=== PATIENT | male | born 1985 | race Caucasian/White ===

== ENCOUNTER 2020-10-21 22:20 | Emergency (ER) | payer BC, SELFPAY ==
[2020-10-21 22:27] VITALS: BP 156/76; PULSE 107; RESP 20; TEMP 36.9; O2SAT 97
[2020-10-21 22:48] LABS: Glucose Point of Care 464 mg/dl (65-105)
[2020-10-21 22:54] LABS: Basophils Absolute Auto 0.1 K/mm3 (0.0-0.1); Basophils Percent Auto 0.6 % (0.2-1.2); Eosinophils Absolute Auto 0.1 K/mm3 (0-0.3); Eosinophils Percent Auto 1.3 % (0-4.4); Hematocrit 39.8 % (42.0-52.0); Hemoglobin 12.9 g/dL (14.0-18.0); Immature Granulocyte Absolute 0.04 K/mm3 (0.00-0.031); Immature Granulocyte Percent A 0.5 % (0-0.5); Lymphocytes Absolute Auto 2.19 K/mm3 (0.9-3.2); Lymphocytes Percent Auto 26.3 % (18.3-44.2); Mean Corpuscular HGB Conc 32.4 g/dl (32-36); Mean Corpuscular Hemoglobin 27.7 pg (26-34); Mean Corpuscular Volume 85.6 fl (80-100); Mean Platelet Volume 12.1 fl (7.4-10.4); Monocytes Absolute Auto 0.5 K/mm3 (0.1-0.6); Monocytes Percent Auto 6.4 % (2.6-8.5); Neutrophils Absolute Auto 5.4 K/mm3 (1.3-6.7); Neutrophils Percent Auto 64.9 % (45.5-73.1); Platelet Count Result 162 k/mm3 (150-375); Red Blood Count 4.65 M/mm3 (4.6-6.20); Red Cell Distribution Width 14.7 % (11.5-14.5); White Blood Count 8.3 K/mm3 (4.5-10.0)
[2020-10-21 23:09] LABS: Albumin Level 4.5 g/dL (3.5-5.1); Alkaline Phosphatase 94 U/L (38-126); Anion Gap 16 mmol/L (8-16); Aspartate Amino Transferase 54 U/L (17-59); Bilirubin,Total 1.1 mg/dL (0.2-1.3); Blood Urea Nitrogen 13 mg/dL (9-20); Calcium 9.4 mg/dL (8.4-10.2); Carbon Dioxide 28 mmol/L (22-30); Chloride 90 mmol/L (98-107); Estimated CRCL calculation 176 ml/min; Estimated Glomerular Filt Rate > 60; Glucose 474 mg/dL (75-110); Magnesium 1.4 mg/dL (1.6-2.3); Phosphorus 3.6 mg/dL (2.5-4.5); Sodium 134 mmol/L (137-145)
[2020-10-21 23:27] LABS: Alanine Aminotransferase 49 U/L (4-50)
[2020-10-21 23:37] LABS: Add Urine Microscopic? YES; Appearance Urine Clear (Clear); Bilirubin Urine Negative (Negative); Blood Urine 1+ (Negative); Color Urine Straw (Yellow); Glucose Urine UA 3+ mg/dL (Negative); Ketones Urine Negative (Negative); Leukocyte Esterase Ur Negative LEU/UL (Negative); Mucus Urine Rare /lpf; Nitrate Urine Negative (Negative); Protein Urine 1+ mg/dL (Negative); Urobilinogen Urine Negative mg/dL (<2.0); WBC Urine 0-3 /hpf
[2020-10-22 01:29] LABS: Alveolar/Arterial O2 Gradient 34.4 mmHg; Fractional Inspired Oxygen 21 %; Oxygen Saturation ABG 92.8 % (95.0-100.0); Oxyhemoglobin 90.8 % THb (90.0-100.0); PCO2 ABG 41.2 mmHg (35.0-45.0); PO2 FiO2 Ratio Arterial Blood 3.14 %; Total Hemoglobin 13.3 g/dL (12.0-18.0); pH ABG 7.384 (7.350-7.450)
[2020-10-22 01:30] LABS: Modified Allen's Test Pass; Site Drawn RIGHT RADIAL
[2020-10-22 01:35] VITALS: BP 145/72; PULSE 98; RESP 14; O2SAT 95
--- NOTE | 2020-10-22 01:37 | ED.GENADULT ---
HPI - General Adult General Chief complaint: Recheck/Abnormal Lab/Rx <Gopi Rico MD - Last Filed: 10/22/20 02:07> Stated complaint: high blood sugar, lightheaded, chest pressure <Gopi Rico MD - Last Filed: 10/22/20 02:07> Time Seen by Provider: 10/22/20 00:48 <Gopi Rico MD - Last Filed: 10/22/20 02:07> Source: patient and family <Gopi Rico MD - Last Filed: 10/22/20 02:07> History of Present Illness HPI narrative: Patient is 35 years old white male presents with hyperglycemia. History of diagnosis of diabetes over 1 year ago, patient been on oral medication for a while, started on insulin 6 months ago. Patient is telling me that he check his blood glucose once a day, at a.m., 3 to 4 days a week and usually runs in the 300 400 range. Patient went to see his family physician today for regular checkup, hemoglobin A1c was 10.8. His insulin regimen changed. Patient started the new insulin regimen, then checked his blood glucose before dinner and the number was high. Currently patient complaining of lightheadedness and not feeling well. Patient denies any fever, chills, nausea, vomiting, chest pain, shortness of breath, back pain, headache. <Gopi Rico MD - Last Filed: 10/22/20 02:07> Related Data Home medications: Home Medications Medication Instructions Recorded Confirmed dapagliflozin 10 mg tablet 10 mg PO QAM tablet 05/01/19 amlodipine 10/22/20 atorvastatin 10/22/20 famotidine 10/22/20 insulin aspart U-100 [Novolog 5 unit SUBCUT TID 10/22/20 Flexpen U-100 Insulin] <Gopi Rico MD - Last Filed: 10/22/20 02:07> Allergies/adverse reactions: Allergies Allergy/AdvReac Type Severity Reaction Status Date / Time No Known Allergies Allergy Verified 10/22/20 01:37 <Gopi Rico MD - Last Filed: 10/22/20 02:07> Review of Systems Review of Systems: Narrative: CONSTITUTIONAL: Denies fever, chills, or sweats. EYES: Denies visual changes, redness, or discharge. ENT: Denies rhinorrhea, congestion, sore throat, or otalgia. CARDIOVASCULAR: Denies chest pain, palpitations, or edema. RESPIRATORY: Denies cough or dyspnea. GASTROINTESTINAL: Denies abdominal pain, nausea, vomiting, or diarrhea. GENITOURINARY: Denies dysuria or hematuria. SKIN: Denies rash or itching. MUSCULOSKELETAL: Denies back pain, joint pain, or myalgia. NEUROLOGIC: Denies headache, numbness, or weakness. PSYCHIATRIC: Denies anxiety or depression. <Gopi Rico MD - Last Filed: 10/22/20 02:07> PMFSH Social History Social History: Social History Smoking status: Heavy tobacco smoker Second hand tobacco smoke exposure: No Alcohol intake: current Gender identity (if verbalized by the patient): Male <Gopi Rico MD - Last Filed: 10/22/20 02:07> Exam Narrative: Exam Narrative: General appearance: Well-developed, well-nourished, morbid obesity Skin: Normal color Head: Normocephalic, nontraumatic Eyes: Clear conjunctiva ENT: Oropharynx normal, ears normal, nose normal Neck: Supple, nontender Chest and respiratory: Airway patent, no respiratory distress, no accessory muscle use Heart: Regular rate/rhythm Abdomen: Soft, nontender, no organomegaly, quiet bowel sounds Vascular: Normal peripheral pulses, normal capillary refill. Musculoskeletal: Normal range of motion, nontender back Neurologic: Alert and oriented ?3, [employer] is normal as tested, no gross motor deficit <Gopi Rico MD - Last Filed: 10/22/20 02:07> Course Course Emergency Course: Stable <Gopi Rico MD - Last Filed: 10/22/20 02:07> Reevaluation(s) Reevaluation #1:
[2020-10-22] MEDS: INSULIN HUMAN REGULAR (*BKC) 100 UNITS/ML 10 UNITS IV PUSH (01:38)
[2020-10-22] MEDS: SODIUM CHLORIDE 0.9% IV 1,000 ML 999 ML IV CONT ×2 (01:41→01:42)
[2020-10-22 02:26] LABS: Glucose Point of Care 353 mg/dl (65-105)
[2020-10-22 03:38] LABS: Glucose Point of Care 284 mg/dl (65-105)
[2020-10-22 04:03] VITALS: BP 124/54; PULSE 95; RESP 20; O2SAT 96
== END 2020-10-22 04:02 | disposition home or self-care (01) ==
PROVIDERS: Emergency Medicine; Emergency Provider General Practice; PCP Nurse Practitioner Family
DX: E11.65 Type 2 diabetes mellitus with hyperglycemia (principal); F17.200 Nicotine dependence, unspecified, uncomplicated; Z79.4 Long term (current) use of insulin
CPT/HCPCS: 36415; 36600; 80053; 81001; 82010; 82805; 82948; 83735; 84100; 85025; 96361; 96374; 99284; J1815; J7030

== ENCOUNTER 2023-11-05 18:29 | Emergency (ER) | payer BC, SELFPAY ==
--- NOTE | ~2023-11-05 | XR_ITS ---
EXAMINATION: XR chest 2V Exam Date/Time: 11/05/2023 18:50 CDT HISTORY: chest pain Comparison: 05/02/2014. RESULT: Lines, tubes, and devices: None. Lungs and pleura: Clear. Cardiomediastinal silhouette: Stable. Other: No acute osseous or upper abdominal finding. IMPRESSION: No acute cardiopulmonary process. Reviewed, dictated and finalized at location K.
--- NOTE | 2023-11-05 18:31 | ECG_ITS ---
Test Date: 2023-11-05 18:34:56 Measurements Intervals [place] Rate: 106 P: 61 NM: 156 QRS: 54 QRSD: 116 T: 27 QT: 321 QTc: 428 Interpretive Statements SINUS TACHYCARDIA INTRAVENTRICULAR CONDUCTION DELAY DELAYED PRECORDIAL R/S TRANSITION BORDERLINE ST-T WAVE ABNORMALITY- INFERIOR LEADS BASELINE ARTIFACT- I, II, III, AVR, AVL, V4-V5 BORDERLINE ECG No previous ECG available for comparison Electronically Signed On 11-05-2023 20:46:26 CDT by Kvng Rdz D.O.
[2023-11-05 18:48] LABS: Basophils Percent Auto 0.5 % (0.2-1.2); Eosinophils Absolute Auto 0.1 K/mm3 (0-0.3); Eosinophils Percent Auto 1.8 % (0-4.4); Hematocrit 43.1 % (42.0-52.0); Hemoglobin 14.5 g/dL (14.0-18.0); Immature Granulocyte Absolute 0.03 K/mm3 (0.00-0.031); Immature Granulocyte Percent A 0.4 % (0-0.5); Lymphocytes Absolute Auto 2.29 K/mm3 (0.9-3.2); Lymphocytes Percent Auto 30.9 % (18.3-44.2); Mean Corpuscular HGB Conc 33.6 g/dl (32-36); Mean Corpuscular Hemoglobin 28.4 pg (26-34); Mean Corpuscular Volume 84.5 fl (80-100); Mean Platelet Volume 12.2 fl (7.4-10.4); Monocytes Absolute Auto 0.5 K/mm3 (0.1-0.6); Monocytes Percent Auto 6.3 % (2.6-8.5); Neutrophils Absolute Auto 4.5 K/mm3 (1.3-6.7); Neutrophils Percent Auto 60.1 % (45.5-73.1); Platelet Count Result 145 k/mm3 (150-375); Red Cell Distribution Width 15.1 % (11.5-14.5); White Blood Count 7.4 K/mm3 (4.5-10.0)
[2023-11-05 18:55] LABS: INR 1.1
[2023-11-05 18:56] LABS: Alanine Aminotransferase 49 U/L (6-50); Albumin Level 4.4 g/dL (3.5-5.1); Alkaline Phosphatase 84 U/L (38-126); Anion Gap 14 mmol/L (4-12); Aspartate Amino Transferase 51 U/L (17-59); Bilirubin,Total 1.3 mg/dL (0.2-1.3); Blood Urea Nitrogen 16 mg/dL (9-20); Calcium 9.7 mg/dL (8.4-10.2); Carbon Dioxide 32 mmol/L (22-30); Chloride 87 mmol/L (98-107); Estimated Glomerular Filt Rate > 60; Glucose 434 mg/dL (65-110); Lipase 101 U/L (23-300); Partial Thromboplastin Time 28.4 Seconds (22.3-36.8); Potassium 3.9 mmol/L (3.4-5.0); Sodium 133 mmol/L (137-145)
[2023-11-05 19:02] VITALS: BP 172/89; PULSE 109; RESP 20; TEMP 35.8; O2SAT 93
[2023-11-05 19:07] LABS: Troponin I < 0.012 ng/mL (0.000-0.034)
== END 2023-11-05 23:16 | disposition left against medical advice (07) ==
LOC: ANHED 22:46
PROVIDERS: Emergency Provider Student in an Organized Health Care Education/Training Program; PCP Nurse Practitioner Family
DX: R07.9 Chest pain, unspecified (principal)
CPT/HCPCS: 36415; 71046; 80053; 83690; 84484; 85025; 85610; 85730; 93005; 99199

== ENCOUNTER 2024-03-27 16:22 | Emergency (ER) | payer BC, SELFPAY ==
--- NOTE | ~2024-03-27 | US_ITS ---
EXAMINATION: US scrotum doppler DATE: 03/27/2024 17:54 INDICATION: Left testicular pain and swelling. TECHNIQUE: Grayscale and Doppler ultrasound images of the testes were obtained. COMPARISON: CT abdomen and pelvis 02/05/2017 FINDINGS: The right testis measures 5.1 x 2.5 x 3.4 cm. The left testis measures 5.4 x 2.9 x 3.5 cm. There is normal vascular flow to both testes. The right epididymis is normal with normal vascular sandrine w. The left epididymis is normal with normal vascular flow. There is a left-sided varicocele. Lateral to the left testis, there is a 4.3 x 3.5 x 3.9 cm hypoechoic mass. IMPRESSION: 1. 4.3 cm hypoechoic mass lateral to the left testis. The differential diagnosis includes hematoma, abscess, and less likely neoplasm. Reviewed, dictated and finalized at location A. [employer] IMPRESSION: 1. 4.3 cm hypoechoic mass lateral to the left testis. The differential diagnos is includes hematoma, abscess, and less likely neoplasm.
[2024-03-27 16:47] VITALS: BP 158/78; PULSE 107; RESP 20; TEMP 36.9; O2SAT 96
--- NOTE | 2024-03-27 17:49 | ED_ITS ---
HPI - Male Genitourinary General Chief complaint: Urogenital-Male Stated complaint: SWOLLEN SCROTUM Time Seen by Provider: 03/27/24 17:19 Source: patient Mode of arrival: ambulatory Limitations: no limitations History of Present Illness HPI Narrative: This is a 38-year-old male that presents to the emergency department for scrotal swelling and pain. Ongoing intermittently over the last couple of months. He was seen by his urologist and diagnosed with epididymitis. He finished a course of Bactrim with some improvement. He noted more swelling again over the last week. Was started on Bactrim again 5 days ago. He has had worsening swelling and pain. Denies fevers. Related Data Home Medications ?Medication ?Instructions ?Recorded ?Confirmed ?Last Taken ?Type dapagliflozin propanediol 10 mg 10 mg PO QAM 05/01/19 Unknown History tablet (Farxiga) amlodipine 5 mg tablet 10/22/20 Unknown History atorvastatin 20 mg tablet 10/22/20 Unknown History famotidine 20 mg tablet 10/22/20 Unknown History insulin aspart U-100 100 unit/mL 5 unit subcut TID 10/22/20 Unknown History (3 mL) subcutaneous pen (Novolog FlexPen U-100 Insulin aspart) Allergies Allergy/AdvReac Type Severity Reaction Status Date / Time No Known Allergies Allergy Verified 03/27/24 16:25 Review of Systems 2 Review of Systems: CONSTITUTIONAL: Denies fever GENITOURINARY: Reports dysuria. Denies hematuria. All systems reviewed & are unremarkable except as noted in HPI and below PMFSH Past Medical History Medical History (Updated 03/27/24 @ 20:07 by Silvia Henley PA-C) History of diabetes mellitus Essential (primary) hypertension Dyslipidemia Social History Social History Smoking status: Heavy tobacco smoker Second hand tobacco smoke exposure: No Alcohol intake: current Gender identity (if verbalized by the patient): Male Exam 2 Narrative: GENERAL: Well-appearing, well-nourished, and in no acute distress. HEAD: Normocephalic, atraumatic. EYES: EOMI. CHEST: Clear to auscultation. No respiratory distress. No wheezes rales or rhonchi HEART: Regular rate and rhythm. No murmur heard. Normal peripheral pulses. EXTREMITIES: Normal range of motion. No edema. SKIN: Warm, dry, no rash. NEURO: No focal deficits. Alert and oriented x3. PSYCH: Normal mood and affect MALE GENITAL: Edema and induration to the left scrotum, tender to palpation Course Course Emergency Course: patient and family updated on workup and agree with plan of care Consultations Consultation #1: Spoke with Dr. Palumbo about patient and workup. Patient will be switched to Cipro and should follow up in clinic the next couple of days Date: 03/27/24 Vital Signs Vital signs: Vital Signs Temperature 98.4 F 03/27/24 16:47 Pulse Rate 107 H 03/27/24 16:47 Respiratory Rate 20 03/27/24 16:47 Blood Pressure 158/78 H 03/27/24 16:47 Pulse Oximetry 96 03/27/24 16:47 Oxygen Delivery Room Air 03/27/24 16:47 Temperature 97.7 F 03/27/24 18:50 Pulse Rate 88 03/27/24 18:50 Respiratory Rate 18 03/27/24 18:50 Blood Pressure 147/96 H 03/27/24 18:50 Pulse Oximetry 99 03/27/24 18:50 Oxygen Delivery Room Air 03/27/24 16:47 MDM - Male Genitourinary MDM Narrative Medical decision making narrative: patient presents to the emergency department for left scrotal swelling and pain. Ongoing intermittently over the last couple of months. Had finished a round of Bactrim with some improvement. Was recently started on Bactrim again. Has had worsening swelling and pain which prompted him to be seen. Patient is afebrile and nontoxic appearing. Tachycardic upon arrival, this normalized without intervention. Cbc without leukocytosis. Metabolic panel without concerning findings. Urine without evidence of infection. Scrotal ultrasound shows a 4.3 cm mass lateral testes. Differential includes hematoma, abscess, less likely neoplasm. Spoke with Dr. Palumbo about patient and workup. Patient will be switched to Cipro and should follow up in clinic the next couple of days. patient and family updated on workup and agree with plan of care. He was given warnings to return to the ER Differential Diagnosis Differential diagnosis: Likely epididymitis and other (cellulitis, abscess) Lab Data Attestation: I reviewed the patient's lab results. 03/27/24 19:01 03/27/24 18:04 Labs: Lab Results 03/27/24 03/27/24 03/27/24 Range/Units 17:53 18:04 19:01 WBC 9.3 (4.5-10.0) K/mm3 RBC 4.73 (4.6-6.20) M/mm3 Hgb 13.5 L (14.0-18.0) g/dL Hct 39.9 L (42.0-52.0) % MCV 84.4 (80-100) fl MCH 28.5 (26-34) pg MCHC 33.8 (32-36) g/dl RDW 14.6 H (11.5-14.5) % Plt Count 167 (150-375) k/mm3 MPV 11.3 H (7.4-10.4) fl Immature Gran % (Auto) 0.3 (0-0.5) % Neut % (Auto) 65.2 (45.5-73.1) % Lymph % (Auto) 24.2 (18.3-44.2) % Peach % (Auto) 8.3 (2.6-8.5) % Eos % (Auto) 1.6 (0-4.4) % Baso % (Auto) 0.4 (0.2-1.2) % Lymph # (Auto) 2.26 (0.9-3.2) K/mm3 Peach # (Auto) 0.8 H (0.1-0.6) K/mm3 Eos # (Auto) 0.2 (0-0.3) K/mm3 Baso # (Auto) 0.0 (0.0-0.1) K/mm3 Abs Immat Gran (auto) 0.03 (0.00-0.031) K/mm3 Absolute Neuts (auto) 6.1 (1.3-6.7) K/mm3 Absolute Nucleated RBC 0.000 (0.0-0.012) K/mm3 Nucleated RBC % 0.0 (0.0-0.2) % Sodium 133 L (137-145) mmol/L Potassium 4.4 (3.4-5.0) mmol/L Chloride 95 L (98-107) mmol/L Carbon Dioxide 28 (22-30) mmol/L Anion Gap 10 (4-12) mmol/L BUN 14 (9-20) mg/dL Creatinine 0.70 (0.7-1.3) mg/dL Estim Creat Clear Calc 184 ml/min Estimated GFR > 60 (59 - ) Glucose 361 H (65-110) mg/dL Calcium 9.6 (8.4-10.2) mg/dL Urine Color Yellow (Yellow) Urine Appearance Clear (Clear) Urine pH 6.0 (5.0-9.0) Ur Specific [place] 1.033 (1.001-1.035) Urine Protein 1+ H (Negative) mg/dL Urine Glucose (UA) 3+ H (Negative) mg/dL Urine Ketones Negative (Negative) mg/dL Ur Blood (Man) Negative (Negative) Urine Nitrate Negative (Negative) Urine Bilirubin Negative (Negative) Urine Urobilinogen 1.0 (<2.0) mg/dL Leukocyte Esterase Rfl Negative (Negative) VU/UL Urine RBC 0-2 (0-2) /hpf Urine WBC 0-5 (0-3) /hpf Ur Squamous Epith Cells None seen (Few) /hpf Urine Bacteria None seen /hpf Urine Casts 0-2 C. trachomatis (PCR) Not detected (NOT DETECTE) N. gonorrhoeae (PCR) Not detected (NOT DETECTE) Imaging Data Radiologist's impression: ITS Impressions Scrotum Ultrasound 03/27/24 17:55 IMPRESSION: 1. 4.3 cm hypoechoic mass lateral to the left testis. The differential diagnosis includes hematoma, abscess, and less likely neoplasm. Critical Care Time Critical Care Time Critical Care Time: No Discharge Plan Discharge Clinical Impression: Cellulitis of scrotum Patient Disposition: Home, Self-Care Condition: Stable Instructions: Antibiotic Form, Cellulitis (ED) Additional Instructions: Return to the ER if you experience fever, abdominal pain with nausea and vomiting, you are unable to keep down liquids or solids, or any other symptoms that are concerning to you Over the counter pain medication as needed. prescribed pain medication as needed. Take oral antibiotics as prescribed Follow up with Urology Patient Language: Slovak Prescriptions: New ciprofloxacin HCl 500 mg tablet 500 mg PO Q12H 10 Days Qty: 20 0RF hydrocodone-acetaminophen 5-325 mg tablet 1 tablet PO Q6H PRN (Reason: pain) Qty: 14 0RF No Action atorvastatin 20 mg tablet amlodipine 5 mg tablet famotidine 20 mg tablet insulin aspart U-100 [Novolog FlexPen U-100 Insulin] 100 unit/mL (3 mL) Insulin Pen 5 unit SUBCUT TID Farxiga 10 mg tablet 10 mg PO QAM Rx Instructions: take 1 tablet by oral route every day in the morning indapamide 2.5 mg tablet 2.5 mg PO QAM Qty: 90 3RF Rx Instructions: take 1 tablet by oral route every day in the morning metformin 500 mg tablet extended release 24hr 2,000 mg PO QPM Qty: 360 0RF Rx Instructions: take 4 tablet by oral route every day with the evening meal lisinopril 40 mg tablet See Rx Instructions .ROUTE .COMPLEX Qty: 90 0RF Dose Instruction: TAKE 1 TABLET BY MOUTH DAILY Rx Instructions: TAKE 1 TABLET BY MOUTH DAILY needs follow-up for further refills pantoprazole 40 mg tablet,delayed release (DR/EC) See Rx Instructions .ROUTE .COMPLEX Qty: 90 0RF Dose Instruction: TAKE 1 TABLET(40 MG) BY MOUTH EVERY DAY Rx Instructions: TAKE 1 TABLET(40 MG) BY MOUTH EVERY DAY needs follow-up for further refills glipizide 10 mg tablet extended release 24hr See Rx Instructions .ROUTE .COMPLEX Qty: 90 0RF Dose Instruction: TAKE 1 TABLET(10 MG) BY MOUTH EVERY DAY WITH BREAKFAST Rx Instructions: TAKE 1 TABLET(10 MG) BY MOUTH EVERY DAY WITH BREAKFAST needs follow up for further refills allopurinol 300 mg tablet See Rx Instructions .ROUTE .COMPLEX Qty: 90 0RF Dose Instruction: TAKE 1 TABLET BY MOUTH EVERY DAY Rx Instructions: TAKE 1 TABLET BY MOUTH EVERY DAY needs follow up for further refills Follow-up/Referrals: Raúl Wyatt MD [Physician] - [facility],ISHAN Cristina [Primary Care Provider] -
[2024-03-27 18:06] LABS: Add Urine Microscopic? YES; Appearance Urine Clear (Clear); Bacteria Urine None Seen /hpf; Bilirubin Urine Negative (Negative); Blood Urine Negative (Negative); Color Urine Yellow (Yellow); Glucose Urine UA 3+ mg/dL (Negative); Ketones Urine Negative (Negative); Leukocyte Esterase Ur Negative LEU/UL (Negative); Nitrate Urine Negative (Negative); Non Pathogenic Casts 0-2; Protein Urine 1+ mg/dL (Negative); RBC Urine 0-2 /hpf (0-2); Specific Grav Ur 1.033 (1.001-1.035); Squamous Epithelial Cell Urine None Seen /hpf (Few); WBC Urine 0-5 /hpf (0-3)
[2024-03-27 18:31] LABS: Anion Gap 10 mmol/L (4-12); Blood Urea Nitrogen 14 mg/dL (9-20); Calcium 9.6 mg/dL (8.4-10.2); Carbon Dioxide 28 mmol/L (22-30); Chloride 95 mmol/L (98-107); Estimated CRCL calculation 184 ml/min; Estimated Glomerular Filt Rate > 60; Glucose 361 mg/dL (65-110); Potassium 4.4 mmol/L (3.4-5.0); Sodium 133 mmol/L (137-145)
[2024-03-27] MEDS: HYDROcodone/acetaminophen (*CRX) 5-325 MG TABLET 1 TAB PO (18:40)
[2024-03-27 18:50] VITALS: BP 147/96; PULSE 88; RESP 18; TEMP 36.5; O2SAT 99
[2024-03-27 19:07] LABS: Basophils Percent Auto 0.4 % (0.2-1.2); Eosinophils Absolute Auto 0.2 K/mm3 (0-0.3); Eosinophils Percent Auto 1.6 % (0-4.4); Hematocrit 39.9 % (42.0-52.0); Hemoglobin 13.5 g/dL (14.0-18.0); Immature Granulocyte Absolute 0.03 K/mm3 (0.00-0.031); Immature Granulocyte Percent A 0.3 % (0-0.5); Lymphocytes Absolute Auto 2.26 K/mm3 (0.9-3.2); Lymphocytes Percent Auto 24.2 % (18.3-44.2); Mean Corpuscular HGB Conc 33.8 g/dl (32-36); Mean Corpuscular Hemoglobin 28.5 pg (26-34); Mean Corpuscular Volume 84.4 fl (80-100); Mean Platelet Volume 11.3 fl (7.4-10.4); Monocytes Absolute Auto 0.8 K/mm3 (0.1-0.6); Monocytes Percent Auto 8.3 % (2.6-8.5); Neutrophils Absolute Auto 6.1 K/mm3 (1.3-6.7); Neutrophils Percent Auto 65.2 % (45.5-73.1); Platelet Count Result 167 k/mm3 (150-375); Red Blood Count 4.73 M/mm3 (4.6-6.20); Red Cell Distribution Width 14.6 % (11.5-14.5); White Blood Count 9.3 K/mm3 (4.5-10.0)
[2024-03-27 19:32] LABS: Chlamydia trachomatis NOT DETECTED (NOT DETECTE); Neisseria gonorrhoeae PCR NOT DETECTED (NOT DETECTE)
[2024-03-27] MEDS: CIPROFLOXACIN 500 MG TAB PO (20:16)
== END 2024-03-27 20:20 | disposition home or self-care (01) ==
PROVIDERS: Nurse Practitioner Family; Emergency Provider Physician Assistant; PCP Nurse Practitioner
DX: N49.2 Inflammatory disorders of scrotum (principal); I10 Essential (primary) hypertension; E11.9 Type 2 diabetes mellitus without complications; E78.5 Hyperlipidemia, unspecified; F17.200 Nicotine dependence, unspecified, uncomplicated; Z79.4 Long term (current) use of insulin; Z79.899 Other long term (current) drug therapy; Z79.84 Long term (current) use of oral hypoglycemic drugs
CPT/HCPCS: 36415; 76870; 80048; 81001; 85025; 87491; 87591; 93976; 99284; A9270